=== PATIENT | male | born 1965 | race Caucasian/White ===

== ENCOUNTER → 2025-06-01 | Outpatient (CLI) | payer OTHER, SELFPAY ==
[2025-06-01 13:10] LABS: AST(SGOT) 57 U/L (<=37); Alanine Aminotransfer ALT/SGPT 88 U/L (<=46); Albumin, Serum 4.7 g/dL (3.5-5.0); Alkaline Phosphatase 58 U/L (40-129); Anion Gap 12 (5-15); BUN 15 mg/dL (4-19); BUN/Creat Ratio 14.6 RATIO (10-20); Calcium,Total 9.8 mg/dL (7.6-11.0); Carbon Dioxide 27.3 mmol/L (21.0-32.0); Chloride 101 mmol/L (98-108); Cholesterol 216 mg/dL (<=200); Globulin 3.0 g/dL (2.2-4.2); Glucose 169 mg/dL (70-99); Low Density Lipoprotein Calc. 149 mg/dL; Potassium 4.4 mmol/L (3.3-5.1); Triglycerides 150 mg/dL; Very Low Density Lipoprotein 30 mg/dL (5-40); cholesterol:hdl ratio screen 5.79
[2025-06-01 13:13] LABS: Hematocrit 46.2 % (40-54); Hemoglobin 15.1 g/dL (13.0-16.5); Immature Granulocytes Count 0.050 X10^3/uL (0.0-0.0); Mean Corp Hgb Conc 32.7 g/dL (32-36); Mean Corpuscular Volume 86.4 fL (80-94); Mean Platelet Vol. 11.1 fl (6.2-12.0); NRBC Flagged by Analyzer 0 % (0-5); Platelet Count 205 K/mm3 (150-450); RBC Distribution Width CV 12.8 % (11.6-14.6); RBC Distribution Width SD 39.7 fl (35.1-43.9); Red Blood Count 5.35 M/mm3 (4.6-6.2); White Blood Count 7.8 K/mm3 (4.4-11.0)
[2025-06-01 13:32] LABS: Creatinine, Urine (random) 176.00 mg/dL (39.00-259.00)
[2025-06-01 14:03] LABS: Microalbumin,Random Urine < 12.0 mg/L (<20 mg/L)
== END | disposition home or self-care (01) ==
LOC: BFHLAB 08:37
PROVIDERS: PCP Family Medicine; Visit Provider Family Medicine
DX: E11.9 Type 2 diabetes mellitus without complications (principal)
CPT/HCPCS: 36415; 80053; 80061; 82043; 82570; 84443; 85025

== ENCOUNTER 2025-06-13 13:53 | Outpatient (RCR) | payer OTHER, SELFPAY | END 2025-07-05 23:59 | LOC: NS 13:53 | PROVIDERS: PCP Family Medicine; Referring Provider Family Medicine; Visit Provider Family Medicine | DX: Z71.3 Dietary counseling and surveillance (principal); E11.9 Type 2 diabetes mellitus without complications | CPT/HCPCS: 97802 ==